=== PATIENT | female | born 1965 | race Caucasian/White ===

== ENCOUNTER 2019-05-18 09:51 | Outpatient (RCR) | payer BC, SELFPAY | END 2019-06-22 15:30 | disposition home or self-care (01) | LOC: PT.CARL 09:51 | PROVIDERS: Visit Provider Nurse Practitioner Family | DX: M70.62 Trochanteric bursitis, left hip (principal); M70.61 Trochanteric bursitis, right hip | CPT/HCPCS: 97033; 97110; 97163 ==

== ENCOUNTER → 2020-01-20 07:10 | Outpatient (CLI) | payer BC, SELFPAY ==
[2020-01-20 08:40] LABS: Coronavirus 19 IgG Antibody Negative (Negative); Coronavirus 19 IgM Antibody Negative (Negative)
== END ==
PROVIDERS: Visit Provider Internal Medicine Gastroenterology
DX: Z03.818 Encounter for observation for suspected exposure to other biological agents ruled out (principal)
CPT/HCPCS: 36415; 86328

== ENCOUNTER 2020-01-21 10:30 | Day surgery (SDC) | payer BC, SELFPAY ==
--- NOTE | 2020-01-18 13:13 | SUR.PREOP ---
01/18/2020--PHONE CALL MADE TO PATIENT. PATIENT UNDERSTANDS THAT LAB WORK AND COVID TESTING NEEDS TO BE COMPLETED @ 0700 ON 01/20/2020. PATIENT UNDERSTANDS IF LAB WORK AND COVID-19 TESTS ARE NOT COMPLETED BY 12PM ON THAT DATE, THE SURGERY SCHEDULED WILL BE CANCELLED AND RESCHEDULED FOR ANOTHER TIME.
[2020-01-18 14:30] VITALS: BMI 33.3
[2020-01-21] VITALS (7 sets, daily range): BP systolic 97–159; BP diastolic 55–84; PULSE 68–98; RESP 16–18; TEMP 36.3–36.9; O2SAT 94–99
--- NOTE | 2020-01-21 12:10 | P.PN_ITS ---
[facility] Anesthesia Checklist - Patient Identification Patient Identification: Arm Band, Verbal (Name & ) - Structural Data Admitted From: Home Planned Operative Procedure/s: EGD/Colonoscopy Consent for Planned Operative Procedure(s) Verified: Yes Verified Documents: Surgical Consent, History and Physical - NPO Status Verified Time NPO: 00:00 - Chart Verification Results Verified: CBC (Covid-19) - Additional verifications Anesthesia Reactions: No - Airway Assessment C-Spine Mobility Assessed: Yes TMJ Mobility Assessed: Yes Dentition: Poor Dentition - Neurological Assessment Level of Consciousness: Awake, Alert, Appropriate, Follows Commands Hx Seizures: No Numbness or tingling in extremities: No - Anesthesia Plan Anesthesia Risk discussed: Yes Anesthesia Plan: Verified ASA Class: II Anesthesia Type: MAC [facility] History I have reviewed the patient's past medical history: Yes Medical History: Reports:: Anxiety, Gastroesophageal Reflux Disease(GERD) Denies:: Cancer, Diabetes Mellitus Type 1, Diabetes Mellitus Type 2, Internal Pacemaker, MRSA, Seizures *Have you ever received a pneumonia vaccine?: No *Have you received a flu vaccine this season?: No Anesthesia experience/problems:: none Other Surgeries: No: Pacemaker Amputation: No - *Social History Smoking Status: Current every day smoker Tobacco Type: cigarettes # Packs/Day (cigarettes): 1 Alcohol Intake: never Substance Use Type: denies use *Occupational Status:: employed Housing: house *Travel in the last 8 weeks: None Family Hx:: Cancer
--- NOTE | 2020-01-21 12:20 | P.PCN_ITS ---
[facility] Procedure Note Procedure Note:: Upper Endoscopy Procedure Report: Esophagogastroduodenoscopy with cold biopsies and TTS balloon dilation Endoscopost: Silvestre Arambula II, MD Referring Physician: Eva Youssef PA-C Date of Procedure: January 21, 2020 Equipment: Olympus GIF 180 standard upper endoscope Sedation: MAC sedation Indications: Mrs. Leon is a 54-year-old female who has had epigastric abdominal pain that radiates into the right upper quadrant. This is very similar to her prior gallbladder pain. She did have cholecystectomy nearly 20 years ago. The patient does report some belching, minor bloating, regurgitation and significant heartburn. She has some globus sensation and occasional dysphagia. She reports no nausea or weight loss. She reports no melena or hematochezia. She does have some chronic constipation and has a bowel movement every 3 days. Her mother had pancreatitis and colon cancer. Procedure: Prior to the procedure, a history and physical exam was performed, and patient's medications and allergies were reviewed. The risks, benefits and alternatives of the sedation and procedure were discussed with the patient. All questions were answered and informed consent was obtained. The patient was brought to the procedure room. Patient identification and proposed procedure were verified by the physician and the nurse. The patient was placed in a left lateral decubitus position and the scope was passed under direct vision. Throughout the procedure, the patient's blood pressure, pulse, and oxygen saturations were monitored continuously. The upper GI endoscopy was accomplished without difficulty. The patient tolerated the procedure well. Findings: The scope was passed directly into the upper esophagus and advanced to the third portion of the duodenum. The post bulbar duodenum and duodenal bulb were normal with normal mucosa and conniventes. The scope was withdrawn through a normal duodenal bulb and pylorus into the stomach. There was moderate bile reflux with linear reactive gastropathy of the antrum and body of the stomach. The remainder of the fundus of the stomach were grossly normal. Upon retroflexion there was no hiatal hernia. 2 biopsies were taken in the antrum and along the lesser curvature for histology to rule out gastritis and/or H pylori. The scope was then withdrawn into the esophagus. There was a serrated Z line and evidence of nonerosive GERD. There were tertiary contractions and evidence of moderate esophageal dysmotility. The entire esophagus was dilated to 60 Setswana/20 mm with a TTS hydrostatic balloon. There was some resistance at the cricopharyngeus. The remainder of the esophageal mucosa was normal. Impression: 1. Cricopharyngeal spasm status post dilation to 20 mm 2. Nonerosive GERD with mild esophageal dysmotility 3. Bile reflux with linear reactive gastropathy Plan: I will follow-up the biopsies. We will discuss dietary measures and treatment options. I would recommend liver and pancreatic chemistries today. If these were elevated, I would consider ERCP. I will proceed with diagnostic colonoscopy.
--- NOTE | 2020-01-21 12:38 | HMH.PROC ---
[facility] Procedure Note Procedure Note:: Colonoscopy Procedure Report: Colonoscopy with cold snare polypectomy Endoscopist: Silvestre Arambula II, MD Referring physician: Eva Youssef PA-C Date of Procedure: January 21, 2020 Equipment: Olympus 180 variable stiffness pediatric colonoscope Sedation: MAC sedation Indication: Mrs. Leon is a 54-year-old female who is here for diagnostic colonoscopy. The patient has had abdominal pain in the epigastrium and right upper quadrant. She has had some chronic constipation and this may be worsened recently. She reports no rectal bleeding or weight loss. Her mother had colon cancer in her 30s. The patient did have a screening/surveillance colonoscopy 5 years ago. Procedure: Prior to the procedure, a history and physical exam was performed, and patient's medications and allergies were reviewed. The risks, benefits and alternatives of the sedation and procedure were discussed with the patient. All questions were answered and informed consent was obtained. The patient was brought to the procedure room. Patient identification and proposed procedure were verified by the physician and the nurse. The patient was placed in a left lateral decubitus position and the scope was passed under direct vision. Throughout the procedure, the patient's blood pressure, pulse, and oxygen saturations were monitored continuously. The colonoscopy was accomplished without difficulty. The patient tolerated the procedure well. Findings: On digital rectal examination there was normal rectal tone. There were no external hemorrhoids. The colonoscope was introduced through the anal canal to the rectum and advanced to the cecum. The ileocecal valve and appendiceal orifice were identified. The scope was advanced a short distance into the ileum which appeared grossly normal. The scope was then withdrawn into the colon. The cecum, ascending and transverse colon were normal. There was a 5 mm polyp in the descending and a 4 mm polyp in the rectum. Both of these were removed via cold snare polypectomy. The remainder of the descending, sigmoid and rectum were normal. There were no mucosal abnormalities identified. Upon retroflexion within the rectum there were grade 1 internal hemorrhoids.The preparation was excellent throughout with [place] Preparation Score of 9. The cecal time was 12 minutes. Impression: 1. Diminutive colonic polyps x2 2. Grade 1 internal hemorrhoids Plan: I will follow-up the polyp histology and recommend repeat screening/surveillance colonoscopy again in 5 years based upon her family history. I would consider treatment with Motegrity or Zelnorm because of its effect with IBS constipation and abdominal pain/visceral sensitivity. We will discuss treatment options.
[2020-01-21 13:53] LABS: Alanine Aminotransferase 42 U/L (12-78); Albumin Level 4.6 g/dl (3.5-5.0); Alkaline Phosphatase 98 U/L (38-126); Amylase 71 U/L (30-110); Aspartate Amino Transferase 39 U/L (14-36); Bilirubin,Direct 0.1 mg/dl (0.0-0.4); Bilirubin,Indirect 0.3 mg/dL (0.0-0.9); Bilirubin,Total 0.4 mg/dl (0.2-1.3); Bilirubin,Unconjugated 0.3 mg/dL (0.0-1.1); Lipase 75 U/L (23-300); Total Protein,Serum 7.6 g/dl (6.3-8.2)
== END 2020-01-21 13:41 | disposition home or self-care (01) ==
LOC: OUTP 10:31
PROVIDERS: PCP Physician Assistant; Visit Provider Internal Medicine Gastroenterology
PROC: 0DJ08ZZ Inspection of Upper Intestinal Tract, Via Natural or Artificial Opening Endoscopic (ICD-10-PCS; CPT 43235; principal; 2020-01-21 11:30)
DX: Z12.11 Encounter for screening for malignant neoplasm of colon (principal); J39.2 Other diseases of pharynx; K22.4 Dyskinesia of esophagus; K21.9 Gastro-esophageal reflux disease without esophagitis; K31.9 Disease of stomach and duodenum, unspecified; Z80.0 Family history of malignant neoplasm of digestive organs; K63.5 Polyp of colon; K62.1 Rectal polyp
CPT/HCPCS: 43239; 43249; 45385; 80076; 82150; 83690; C1726

== ENCOUNTER 2023-01-19 15:05 | Emergency (ER) | payer OTHER, SELFPAY ==
[2023-01-19 15:05] VITALS: BP 161/85; PULSE 77; RESP 18; TEMP 36.9; O2SAT 95; BMI 32.5
--- NOTE | 2023-01-19 15:29 | EXP.UTC ---
Discharge Plan Disposition Patient Disposition: Home, Self-Care Condition: Good Prescriptions Prescriptions: New azithromycin [Zithromax] 250 mg tablet 250 mg PO UD DOSE PK Qty: 6 0RF Rx Instructions: Take two (2) tablets today, then one (1) tablet days #2 thru #5 benzonatate [benzonatate] 100 mg capsule 100 mg PO TIDP PRN (Reason: Cough) Qty: 30 0RF methylprednisolone 4 mg Tablets,Dose Pack 4 mg PO DIRECTED Qty: 21 0RF No Action metformin 500 mg tablet extended release 24 hr 500 mg PO DAILY Label Comments: Take 1 tablet every day by oral route. rosuvastatin 5 mg tablet 5 mg PO DAILY Label Comments: Take 1 tablet every day by oral route. celecoxib 200 MG capsule 200 mg PO DAILY omeprazole 40 MG capsule,delayed release(DR/EC) 40 mg PO DAILY Referrals Follow up/Referrals: Isabel Mcrae [Primary Care Provider] - See instructions Activity Restrictions/Add. Instructions Additional Instructions/Restrictions: Drink plenty of fluids. Take tylenol or ibuprofen for pain or fever. Take the medications as directed. Follow up with your regular doctor. GO TO THE ER FOR ANY WORSENING SYMPTOMS Don't start the oral steroids until tomorrow, since you had the shot here today. Clinical Impressions Clinical Impression: Bronchitis, Sinusitis Instructions Patient Instructions: Sinusitis, DI for Sinusitis Discharge ED Provider: To Ar[facility] General Stated complaint: chest congestion,losing voice Mode of Arrival: Ambulatory Source of Information: Patient Limitations: No Limitations Time Seen by Provider: 01/19/23 15:29 Description of Symptoms (Recalled from Triage Doc. by RN): possible bronchitis HEENT Symptoms (Recalled from RN notes): Yes Resp Symptoms (Recalled from RN notes): No Skin Symptoms (Recalled from RN notes): No MS Symptoms (Recalled from RN notes): No Functional Status (Recalled from RN notes): n/a History of Present Illness Provider Complaint: She states that for the past 1 week she has had worsening chest and sinus congestion. She gets pneumonia frequently and that is what she is afraid is going to happen this time. Related Data Home Medications Medication Instructions Recorded Confirmed celecoxib 200 mg capsule 200 mg PO DAILY Pain 01/18/20 01/19/23 omeprazole 40 mg capsule,delayed 40 mg PO DAILY GERD 01/18/20 01/19/23 release metformin 500 mg tablet,extended 500 mg PO DAILY Diabetes 01/19/23 01/19/23 release 24 hr rosuvastatin 5 mg tablet 5 mg PO DAILY High cholesterol 01/19/23 01/19/23 Previous Rx's Medication Instructions Recorded azithromycin 250 mg tablet 250 mg PO UD DOSE PK #6 tabs 01/19/23 (Zithromax) benzonatate 100 mg capsule 100 mg PO TIDP PRN Cough #30 caps 01/19/23 methylprednisolone 4 mg tablets in 4 mg PO DIRECTED #21 tabs 01/19/23 a dose pack Allergies Allergy/AdvReac Type Severity Reaction Status Date / Time No Known Allergies Allergy Verified 01/19/23 15:23 Worker's Comp Is this a Worker's Comp case?: No [facility] Disclaimer: The information contained in this section may have been updated after the patient was seen, as this information can be updated by other users. Social History Smoking Status: Current every day smoker tobacco type: cigarettes packs per day: 1 alcohol intake: never substance use type: denies use current occupational status: employed Travel in the last 8 weeks: None housing: house current occupational exposures/hazards: No caffeine: Yes ROS Obtained: Yes All systems reviewed & no additional complaints except as documented Constitutional Constitutional: Reports poor appetite Eyes Eyes: Reports system reviewed and no additional complaints, except as documented ENT Ears, Nose, Mouth, and Throat: Reports as per HPI Cardiovascular Cardiovascular: Reports system reviewed and
[2023-01-19 16:23] VITALS: BP 161/85; PULSE 77; RESP 18; TEMP 36.9; O2SAT 95
== END 2023-01-19 16:21 | disposition home or self-care (01) ==
PROVIDERS: Emergency Provider Nurse Practitioner Family; PCP Nurse Practitioner Family
DX: J20.9 Acute bronchitis, unspecified (principal); J01.90 Acute sinusitis, unspecified; F17.210 Nicotine dependence, cigarettes, uncomplicated
CPT/HCPCS: 96372; 99204; 99212; G0463; J0696

== ENCOUNTER 2025-04-07 10:16 | Day surgery (SDC) | payer BC, SELFPAY ==
[2025-04-07 11:07] VITALS: BP 130/85; PULSE 84; RESP 17; TEMP 37.1; O2SAT 97; BMI 30.9
[2025-04-07] MEDS: LACTATED RINGERS 1000ML 1,000 ML 50 ML IV (11:16)
[2025-04-07 11:21] LABS: POC Glucose,Bedside 94 (70-110)
--- NOTE | 2025-04-07 12:19 | EXP.HP ---
History of Present Illness *Admission Date: 04/07/25 *Reason for visit:: Personal history of adenomatous colon polyps *History of present illness: Mrs. Leon is a 59-year-old female who is here for surveillance colonoscopy secondary to a personal history of adenomatous colon polyps and family history. The examination is deemed medically necessary for surveillance colonoscopy. The patient has been seen, interviewed and examined prior to the procedure by both myself and the anesthesia provider. [facility] Disclaimer: The information contained in this section may have been updated after the patient was seen, as this information can be updated by other users. Medical History (Updated 04/07/25 @ 12:20 by Silvestre Arambula II, MD) Sleep apnea History of gastroesophageal reflux (GERD) Diabetes mellitus, type 2 Surgical History H/O esophagogastroduodenoscopy H/O colonoscopy Hx of cholecystectomy H/O breast biopsy H/O elbow surgery Family History Mother Colon cancer Father Colon cancer Social History Smoking Status: Current every day smoker tobacco type: cigarettes packs per day: 1 alcohol intake: current substance use type: denies use current occupational status: employed Travel in the last 8 weeks?: None housing: house current occupational exposures/hazards: No caffeine: Yes Have you lived/traveled outside [place] in past 30 days?: No Contact w/someone who lives/traveled outside US past 30 days?: No Exposure to someone with infectious disease in past 14 days?: No Do you have a fever (greater than 100.4 F or 38 C)?: No Have you tested positive for COVID-19?: No Exposed to someone with COVID-19 in past 14 days?: No Do you have a sore throat?: No Do you have a cough?: No Do you have any weakness?: No Are you experiencing any nausea/vomitting?: No Do you have any diarrhea?: No Are you experiencing any unusual bleeding?: No Do you have any muscle aches/pain?: No Do you have any abdominal pain?: No Are you experiencing loss of taste or smell?: No Other Medical History Have you received the Flu Vaccine for this season: No Have you received the Pneumonia Vaccine: No Review of Systems Review of Systems Review of systems (narrative): Negative *Cardiovascular Comments: Negative *Gastrointestinal Comments: Negative *Genitourinary Comments: Negative *Musculoskeletal Comments: Negative *Neurologic Comments: Negative Meds Home Medications and Allergies Home Medications ?Medication ?Instructions ?Recorded ?Confirmed ?Type celecoxib 200 mg capsule 200 mg PO DAILY Pain 01/18/20 03/29/25 History omeprazole 40 mg capsule,delayed 40 mg PO DAILY GERD 01/18/20 03/29/25 History release metformin 500 mg tablet,extended 500 mg PO DAILY Diabetes 01/19/23 03/29/25 History release 24 hr rosuvastatin 5 mg tablet 5 mg PO DAILY High cholesterol 01/19/23 03/29/25 History semaglutide 0.25 mg/0.05 mL 10 mg SQ WEEKLY 03/29/25 03/29/25 History subcutaneous syringe New Prescriptions to Start Prescriptions: Allergies Allergy/AdvReac Type Severity Reaction Status Date / Time No Known Allergies Allergy Verified 04/07/25 11:05 Exam Data for Last 24 hours Vital signs and Labs for Last 24 Hours: Temp Pulse Resp BP Pulse Ox O2 Del Method 98.7 F 84 17 130/85 97 Room Air 04/07/25 11:07 04/07/25 11:07 04/07/25 11:07 04/07/25 11:07 04/07/25 11:07 04/07/25 11:07 Laboratory Results - last 24 hr 04/07/25 11:13: POC Glucose 94 I & O for Last 24 hours: Intake & Output 04/04/25 04/05/25 04/06/25 04/07/25 23:59 23:59 23:59 23:59 Weight 180 lb *Routine HEENT Exam Head: Present normocephalic Eye: Present EOMI and PERRL ENT: Present mucous membranes moist *Routine Neck Exam Neck: Present supple *Routine Respiratory Exam Respiratory: Present CTA bilaterally *Routine Cardiovascular Exam Cardiovascular: Present RRR *Routine Abdominal Exam Abdominal: Present soft and normoactive bowel sounds; Absent tenderness *Routine Rectal Exam Rectal:: deferred *Routine Genitalia Exam Genitalia:: deferred *Routine Extremities Exam Extremities: Absent cyanosis, clubbing or edema *Routine Skin Exam Skin: Present warm; Absent rash *Routine Neurological Exam Neurological: Present alert and oriented X3 Assessment and Plan *Assessment and plan (1) Personal history of adenomatous and serrated colon polyps: Status: Acute Category: Medical Code(s): Z86.0101 - Personal history of adenomatous and serrated colon polyps (2) Family history of colon cancer: Status: Acute Category: Medical Code(s): Z80.0 - Family history of malignant neoplasm of digestive organs Plan A/P: 1. Personal history of adenomatous colon polyps and family history of colon cancer (mother with colon cancer in her 30s) is the preprocedural diagnosis. The patient will be anesthetized/sedated using MAC sedation. The patient has been seen and examined. Cardiac and lung assessment prior to the examination is stable. Proceed with planned screening/surveillance colonoscopy.
--- NOTE | 2025-04-07 12:20 | P.PCN_ITS ---
[facility] Procedure Note Date: 04/07/25 Time: 12:43 Procedure Note:: Colonoscopy Procedure Report: Colonoscopy with cold snare polypectomy Endoscopist: Silvestre Arambula II, MD Referring physician: ELIZABETH Olvera Date of Procedure: April 07, 2025 Equipment: Olympus [id number] adult colonoscope Sedation: MAC sedation Indication: Mrs. Leon is a 59-year-old female who is here for follow-up screening/surveillance colonoscopy. The patient's mother had colon cancer in her 30s. The patient had a colonoscopy with hi in December 2019 and had 2 colon polyps (tubular adenomas x 2) which were removed. The patient reports no abdominal pain, weight loss, change in her bowel habits or rectal bleeding. Procedure: Prior to the procedure, a history and physical exam was performed, and patient's medications and allergies were reviewed. The risks, benefits and alternatives of the sedation and procedure were discussed with the patient. All questions were answered and informed consent was obtained. The patient was brought to the procedure room. Patient identification and proposed procedure were verified by the physician and the nurse. The patient was placed in a left lateral decubitus position and the scope was passed under direct vision. Throughout the procedure, the patient's blood pressure, pulse, and oxygen saturations were monitored continuously. The colonoscopy was accomplished without difficulty. The patient tolerated the procedure well. Findings: On digital rectal examination there was normal rectal tone. There were no external hemorrhoids. The colonoscope was introduced through the anal canal to the rectum and advanced to the cecum. The ileocecal valve and appendiceal orifice were identified. The scope was advanced a short distance into the ileum which appeared grossly normal. The scope was then withdrawn into the colon. The cecum, ascending, transverse and descending colon were normal. There was a diminutive 3 mm polyp in the sigmoid colon removed via cold snare polypectomy. Upon retroflexion within the rectum there were grade 1 internal hemorrhoids. T he preparation was excellent throughout with [place] Preparation Score of 9. The cecal time was 12 minutes. Impression: 1. Diminutive 3 mm sigmoid colon polyp Plan: I will follow-up the polyp histology and recommend repeat surveillance colonoscopy again in 5 years.
--- NOTE | 2025-04-07 12:22 | EXP.ANES.CKL ---
[facility] Disclaimer: The information contained in this section may have been updated after the patient was seen, as this information can be updated by other users. Medical History (Updated 04/07/25 @ 12:20 by Silvestre Arambula II, MD) Sleep apnea History of gastroesophageal reflux (GERD) Diabetes mellitus, type 2 Surgical History H/O esophagogastroduodenoscopy H/O colonoscopy Hx of cholecystectomy H/O breast biopsy H/O elbow surgery Family History Mother Colon cancer Father Colon cancer Social History Smoking Status: Current every day smoker tobacco type: cigarettes packs per day: 1 alcohol intake: current substance use type: denies use current occupational status: employed Travel in the last 8 weeks?: None housing: house current occupational exposures/hazards: No caffeine: Yes Have you lived/traveled outside US in past 30 days?: No Contact w/someone who lives/traveled outside US past 30 days?: No Exposure to someone with infectious disease in past 14 days?: No Do you have a fever (greater than 100.4 F or 38 C)?: No Have you tested positive for COVID-19?: No Exposed to someone with COVID-19 in past 14 days?: No Do you have a sore throat?: No Do you have a cough?: No Do you have any weakness?: No Are you experiencing any nausea/vomitting?: No Do you have any diarrhea?: No Are you experiencing any unusual bleeding?: No Do you have any muscle aches/pain?: No Do you have any abdominal pain?: No Are you experiencing loss of taste or smell?: No [facility] Anesthesia Checklist Patient Identification Patient Identification: Arm Band Structural Data Admitted From: Home Planned Operative Procedure/s: Colonoscopy Consent for Planned Operative Procedure(s) Verified: Yes Verified Documents: Surgical Consent and History and Physical NPO Status Verified Time NPO: 00:00 Additional verifications Anesthesia Reactions: No Airway Assessment Mallampati Score:: Class II C-Spine Mobility Assessed: Yes TMJ Mobility Assessed: Yes Dentition: Good Dentition Neurological Assessment Level of Consciousness: Awake, Alert and Appropriate Anesthesia Plan Anesthesia Risk discussed: Yes Anesthesia Plan: Verified ASA Class: II Anesthesia Type: MAC
[2025-04-07 12:45] VITALS: BP 95/60; PULSE 83; RESP 18; TEMP 36.4; O2SAT 93
[2025-04-07 12:55] VITALS: BP 102/63; PULSE 71; O2SAT 95
[2025-04-07 13:05] VITALS: BP 127/88; PULSE 86; O2SAT 93
[2025-04-07 13:15] VITALS: BP 123/73; PULSE 81; RESP 18; O2SAT 94
== END 2025-04-07 13:15 | disposition home or self-care (01) ==
PROVIDERS: PCP Nurse Practitioner Family; Visit Provider Internal Medicine Gastroenterology
PROC: 0DJD8ZZ Inspection of Lower Intestinal Tract, Via Natural or Artificial Opening Endoscopic (ICD-10-PCS; CPT 45378; principal; 2025-04-07 12:00)
DX: Z12.11 Encounter for screening for malignant neoplasm of colon (principal); K63.5 Polyp of colon; K64.0 First degree hemorrhoids; E11.9 Type 2 diabetes mellitus without complications; K21.9 Gastro-esophageal reflux disease without esophagitis; F17.210 Nicotine dependence, cigarettes, uncomplicated; Z86.0101 Personal history of adenomatous and serrated colon polyps; Z80.0 Family history of malignant neoplasm of digestive organs; Z79.84 Long term (current) use of oral hypoglycemic drugs; Z79.899 Other long term (current) drug therapy
CPT/HCPCS: 45385; 82962; J2003; J2704; J7120